=== PATIENT | male | born 1950 | race Caucasian/White ===

== ENCOUNTER → 2016-09-27 | Outpatient (CLI) | payer BC ==
[~2016-09-27] MED LIST: ASPI81TA21 PO; ATOR-14 PO; AZAT50TA5 PO; CLON0.5T3 PO; EZET10TA47 PO; FAMO1TAB71 PO; LIPO FLAVONOID PO; METO25TA3 PO; MIRT15TA PO; MULTTAB58 PO; NPR500 PO; OPTIRAY 320 IV PRN
[2016-09-27 10:04] LABS: HEMATOCRIT 41.2 % (42-52); MEAN CELL VOLUME 94.3 fL (80-100); MEAN CORPUSCULAR HEMOGLOBIN 31.1 pg (25-34); MEAN PLATELET VOLUME 9.4 fL (7.4-10.4); PLATELET COUNT 224 K/uL (130-400); RED BLOOD COUNT 4.37 M/uL (4.7-6.1); WHITE BLOOD COUNT 4.48 K/uL (4.8-10.8)
[2016-09-27 10:27] LABS: ALT/SGPT 52 U/L (12-78); AST/SGOT 34 U/L (15-37); BLOOD UREA NITROGEN 14 mg/dl (7-18); CALCIUM 9.3 mg/dl (8.5-10.1); CARBON DIOXIDE 28 mmol/L (21-32); CHLORIDE 108 mmol/L (98-107); CHOLESTEROL 143 mg/dl (0-200); CHOLESTEROL/HDL RATIO 2.4; CREATININE 0.87 mg/dl (0.60-1.40); GLUCOSE 108 mg/dl (70-99); HDL CHOLESTEROL 60 mg/dl; LDL CHOLESTEROL CALCULATED 68 mg/dl; POTASSIUM 4.6 mmol/L (3.5-5.1); SODIUM 140 mmol/L (136-145); TRIGLYCERIDES 74 mg/dl (0-150); VERY LOW DENSITY LIPOPROT CALC 15 mg/dl
--- NOTE | 2016-09-27 11:19 | DIAGNOSTIC IMAGING REPORT ---
CHEST COMBO ANGIOGRAPHY CLINICAL HISTORY: 65 years-old Male presenting with DILATED AORTIC ROOT, history of bypass surgery in 2011. TECHNIQUE: Multidetector CT of the chest was performed before and after the administration of intravenous contrast. 3-D volumetric and/or maximum intensity projection (MIP) images were subsequently reconstructed for review. IV contrast: 118 mL of Optiray 320. A dose lowering technique was used consistent with the principles of ALARA (as low as reasonably achievable). COMPARISON: Chest x-ray from 10/17/2011. CT DOSE (mGy.cm): The estimated cumulative dose is 614.42 mGy.cm. FINDINGS: [employer] Supervisor topogram: Unremarkable. Initial noncontrast CT of the chest demonstrates few surgical clips along the anterior heart possibly indicating prior bypass surgery, although no median sternotomy is noted. No surgical material is noted in the aorta. Subsequent postcontrast imaging demonstrates mildly ectatic ascending aorta measuring up to 3.5 cm in transverse dimension. Allowing for nongated technique, no evidence of dissection. Minimal atherosclerosis of aortic arch and origin of the left subclavian artery. Three-vessel arch configuration. Descending aorta normal. Pulmonary arterial tree patent. On soft tissue windows, normal thyroid and thoracic inlet. No axillary, supraclavicular, mediastinal, or hilar lymphadenopathy. Top normal heart size. No significant coronary artery calcification. No pericardial or pleural effusion. Upper abdomen normal. On lung windows, minimal dependent changes likely atelectasis. No other focal infiltrate. Airways patent. On bone windows, degenerative changes of the left glenohumeral joint and spine. IMPRESSION: 1. 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 Allowing for nongated technique, no evidence of dissection. 2. No acute intrathoracic pathology. Electronically signed by: Christopher Gibbs M.D. 09/27/2016 11:18 AM Dictated Date/Time: 09/27/2016 11:09 AM
== END | disposition home or self-care (01) ==
LOC: C.CTS 09:22
PROVIDERS: ATTEND Internal Medicine Cardiovascular Disease
DX: I77.810 Thoracic aortic ectasia (principal); E78.5 Hyperlipidemia, unspecified; I25.10 Atherosclerotic heart disease of native coronary artery without angina pectoris

== ENCOUNTER → 2017-04-22 | Outpatient (CLI) | payer BC ==
[~2017-04-22] MED LIST changes: +AZAT50TA33 PO; -AZAT50TA5 PO; +FAMO-103 PO; -FAMO1TAB71 PO; -OPTIRAY 320 IV PRN
[2017-04-22 13:12] LABS: HEMATOCRIT 39.6 % (42-52); MEAN CELL VOLUME 94.1 fL (80-100); MEAN CORPUSCULAR HEMOGLOBIN 30.9 pg (25-34); MEAN CORPUSCULAR HGB CONC 32.8 g/dl (32-36); MEAN PLATELET VOLUME 9.5 fL (7.4-10.4); PLATELET COUNT 247 K/uL (130-400); RED CELL DISTRIBUTION WIDTH CV 13.3 % (11.5-14.5); RED CELL DISTRIBUTION WIDTH SD 45.5 fL (36.4-46.3); WHITE BLOOD COUNT 4.58 K/uL (4.8-10.8)
[2017-04-22 14:27] LABS: ALT/SGPT 36 U/L (12-78); BLOOD UREA NITROGEN 16 mg/dl (7-18); CARBON DIOXIDE 26 mmol/L (21-32); CREATININE 0.87 mg/dl (0.60-1.40); GLUCOSE 89 mg/dl (70-99); POTASSIUM 4.8 mmol/L (3.5-5.1); SODIUM 139 mmol/L (136-145)
[2017-04-22 14:31] LABS: AST/SGOT 20 U/L (15-37)
== END | disposition home or self-care (01) ==
LOC: C.LAB1850 11:54
PROVIDERS: ATTEND Internal Medicine Cardiovascular Disease
DX: E78.5 Hyperlipidemia, unspecified (principal); I25.10 Atherosclerotic heart disease of native coronary artery without angina pectoris; I77.810 Thoracic aortic ectasia